=== PATIENT | male | born 1945 | race Caucasian/White ===

== ENCOUNTER 2018-03-15 10:28 | Inpatient (IN) | payer MEDICARE, OTHER ==
[2018-03-15] MEDS ORDERED: Ketorolac Tromethamine 30 MG/ML VIAL ONE (11:35)
[2018-03-15 11:46] LABS: #Basophils 0.1 thou/uL (0.0-0.2); #Eosinphils 0.1 thou/uL (0.0-0.7); #Lymphocytes 2.6 thou/uL (1.20-3.40); #Monocytes 1.2 thou/uL (0.11-0.59); #Neutrophils 13.8 thou/uL (1.40-6.50); %Basophils 0.4 % (0.0-1.0); %Eosinophils 0.3 % (0.0-10.0); %Lymphocytes 14.4 % (21.0-51.0); %Monocytes 6.9 % (0.0-10.0); Hemoglobin 15.7 g/dL (14.0-18.0); Mean Corpuscular HGB CONC 34.6 g/dL (32.0-36.0); Mean Corpuscular Hemoglobin 30.2 pg (27.0-31.0); Mean Corpuscular Volume 87.2 fL (78.0-98.0); Mean Platelet Volume 7.8 fL (7.4-10.4); Platelet Count 249 thou/uL (130-400); RBC Distribution Width 12.5 % (11.5-14.5); Red Blood Cell (RBC) Count 5.21 mill/uL (4.70-6.10); White Blood Cell (WBC) Count 17.8 thou/uL (4.8-10.8)
[2018-03-15 12:10] LABS: ALT (SGPT) 43 U/L (8-55); AST (SGOT) 34 U/L (5-34); Albumin 4.4 g/dL (3.4-4.8); Alkaline Phosphatase 72 U/L (40-150); Anion Gap 15 mmol/L (10-20); BUN (Urea Nitrogen) 19 mg/dL (8.4-25.7); Calc. Creatinine Clearance 0 mL/min (70-130); Calcium 10.5 mg/dL (7.8-10.44); Carbon Dioxide 21 mmol/L (23-31); Chloride 102 mmol/L (98-107); Estimated GFR-MDRD 44; Globulin 3.4 g/dL (2.4-3.5); Glucose 111 mg/dL (83-110); Lipase 22 U/L (8-78); Potassium 3.2 mmol/L (3.5-5.1); Protein, Total 7.8 g/dL (5.8-8.1); Sodium 135 mmol/L (136-145)
--- NOTE | 2018-03-15 13:28 | CT ---
CT OF THE ABDOMEN AND PELVIS WITH CONTRAST: 03/15/18 COMPARISON: None. HISTORY: Abdominal pain that began this morning. TECHNIQUE: Multiple contiguous axial images were obtained in a CT of the abdomen and pelvis with contrast. Coron al reformats were performed. FINDINGS: There are hypodensities in the bilateral kidneys measuring up to 5.5 cm in size which represents cys ts. The liver, gallbladder, adrenal glands, spleen, and pancreas are unremarkable. There is a calcification within the tip of the appendix. Just distal to the calcification, the append ix is mildly enlarged and contains hyperdense material. There is subtle surrounding stranding changes and the appendix measures 11 mm in size in this location. No free air or free fluid are seen in the abdomen or pelvis. The small bowel is unremarkable. Scattered diverticula are seen in the colon. No abdominal or pelvic lymphadenopathy are seen. Atherosclerotic calcifications are seen in the aorta . Degenerative changes are seen in the spine. The visualized inferior thorax and abdominal wall soft tissues are unremarkable. IMPRESSION: 1. Possible tip appendicitis. 2. Bilateral renal cysts. 3. Diverticulosis. POS: ASHUTOSH
[2018-03-15] MEDS ORDERED: Piperacillin/Tazobactam 3.375 GM VIAL ONE (14:03)
[2018-03-15 14:17] LABS: Bilirubin Negative (Negative); Blood, Urine Negative (Negative); Clarity CLEAR (Clear); Glucose, Urine (Dipstick) Negative (Negative); Leukocyte Trace (Negative); Nitrite Negative (Negative); Protein, Urine (Dipstick) Negative (Neg-Trace); Specific Gravity, Urine 1.026 (1.002-1.036); pH, Urine 7.5 (5.0-9.0)
[2018-03-15 14:19] LABS: Bacteria/HPF None Seen HPF (None Seen); Hyaline Casts/LPF 0-3 HYALINE CAST LPF (0-3 Hyaline); RBC/HPF 0-3 HPF (0-3); Squamous Epithelial None Seen HPF (0-3); WBC/HPF None Seen HPF (0-3)
[2018-03-15] MEDS ORDERED: Potassium Chloride 20 MEQ in Premix Bag 1 BAG IVPB SCH (14:30)
[2018-03-15] MEDS ORDERED: Fentanyl 100 MCG/2 ML VIAL ONE ×3 (14:50→17:07)
[2018-03-15] MEDS ORDERED: Lidocaine 2% Jelly 5 ML TUBE ONE (14:50)
[2018-03-15] MEDS ORDERED: Bupivacaine/Epinephrine 0.25% 30 ML VIAL ONE (14:51)
[2018-03-15] MEDS ORDERED: Ondansetron HCl/PF 4 MG/2 ML Vial IVP PRN (16:05)
[2018-03-15] MEDS ORDERED: Promethazine HCl 25 MG/ML VIAL IM PRN (16:05)
[2018-03-15] MEDS ORDERED: Promethazine HCl 25 MG/ML VIAL SLOW IVP PRN ×2 (16:05→16:56)
[2018-03-15] MEDS ORDERED: Promethazine HCl 12.5 MG SUPP PR PRN (16:56)
[2018-03-15] MEDS ORDERED: Promethazine 25 MG TAB PO PRN (16:56)
[2018-03-15] MEDS ORDERED: Ondansetron PF 4 MG/2 ML Vial IVP PRN (16:57)
[2018-03-15] MEDS ORDERED: Morphine 2 MG/ML SYRINGE SLOW IVP PRN (16:57)
[2018-03-15] MEDS ORDERED: Acetaminophen 325 MG TAB PO PRN ×2 (16:58)
[2018-03-15] MEDS ORDERED: HYDROcodone/Acetaminophen 5/325 mg Tablet PO PRN ×2 (16:59)
[2018-03-15 18:04] LABS: Troponin I Less than 0.010 ng/mL (< 0.028)
[2018-03-15] MEDS: Sodium Chloride 0.9% 1,000 ML IV SCH (18:35)
[2018-03-15 19:38] VITALS: BMI 29.9
[2018-03-15] MEDS ORDERED: PHENYLEPHRINE-NS 100 MCG/ML 10 ML SYRINGE ONE (20:20)
[2018-03-15] MEDS ORDERED: Dexamethasone 20 MG/5 ML VIAL ONE (20:20)
[2018-03-15] MEDS ORDERED: Succinylcholine Chloride 20 MG/ML 10 ml SYRINGE FS ONE (20:20)
[2018-03-15] MEDS ORDERED: Glycopyrrolate 0.2 MG/ML 5 ML SYRINGE ONE (20:20)
[2018-03-15] MEDS ORDERED: Lidocaine 1% PF 5 ML VIAL ONE (20:20)
[2018-03-15] MEDS ORDERED: Ondansetron PF 4 MG/2 ML Vial ONE (20:20)
[2018-03-15] MEDS ORDERED: PROPOFOL 200 MG/20 ML VIAL ONE (20:20)
[2018-03-15] MEDS: Piperacillin/Tazobactam 3.375 GM in Sodium Chloride 0.9% 100 ML IVPB SCH (22:07)
--- NOTE | 2018-03-15 23:29 | HP ---
CHIEF COMPLAINT: Abdominal pain. HISTORY OF PRESENT ILLNESS: Mr. 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 He was on his way from [place] to [place] when he developed some discomfort in his lower abdomen around 2:00 this morning. He had a bowel movement, which did not relieve his pain and continued to feel like he needed to have another bowel movement. He describes the pain as being like gassy. It got worse that he continued to drive toward [place], to the point that he had to lift himself up off seat whenever he had a bump in the road. 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 He denies any fever, chills, nausea, or vomiting and states that his last bowel movement was normal. PAST MEDICAL HISTORY: Coronary artery disease, status post stenting x2 in 2001. 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 He also has hypertension and hyperlipidemia which are controlled on medications. PAST SURGICAL HISTORY: 1. Back surgery. 2. Cataract. ALLERGIES: NO KNOWN DRUG ALLERGIES. MEDICATIONS: Included: 1. Aspirin. 2. Lisinopril/hydrochlorothiazide. 3. Simvastatin. FAMILY HISTORY: Noncontributory. REVIEW OF SYSTEMS: Negative except per HPI. PHYSICAL EXAMINATION: VITAL SIGNS: Stable. HEENT: Unremarkable. NECK: Supple without lymphadenopathy or thyroid nodules. HEART: Regular in its rate and rhythm without murmurs, rubs, or gallops. LUNGS: Clear to auscultation bilaterally. ABDOMEN: Soft and nondistended. He is very tender to palpation in the right lower quadrant greater than left lower quadrant with no palpable masses or hernias. EXTREMITIES: Warm and well-perfused without edema. NEUROLOGIC: No focal deficits. PSYCHIATRIC: Alert, oriented, and appropriate. LABORATORY DATA: White count is elevated at 17,000. Other labs are unremarkable. CT images are reviewed and I agreed with the written report. He had an appendicolith and a tip appendicitis. ASSESSMENT: Appendicitis. RECOMMENDATIONS: Laparoscopic appendectomy. The patient's diagnosis and recommended treatment were discussed with him. The inherent risks with surgery were also discussed. These include, but are not limited to, bleeding, infection, risks of anesthesia, damage to nearby structures including bowel, bladder and blood vessels, need for open surgery, and need for other procedures. He understands and accepts these risks and wishes to proceed. He received antibiotics in the Emergency Room and these will be continued perioperatively. His [place]. He does not have anybody in town to come pick him up, so he will likely stay overnight. Job ID: [id number]
[2018-03-16] MEDS: Sodium Chloride 0.9% 1,000 ML IV SCH ×2 (02:58→12:05)
[2018-03-16] MEDS: Piperacillin/Tazobactam 3.375 GM in Sodium Chloride 0.9% 100 ML IVPB SCH ×2 (02:58→09:29)
[2018-03-16 06:10] LABS: #Lymphocytes 1.2 thou/uL (1.20-3.40); #Monocytes 0.6 thou/uL (0.11-0.59); #Neutrophils 10.2 thou/uL (1.40-6.50); %Basophils 0.2 % (0.0-1.0); %Eosinophils 0.1 % (0.0-10.0); %Lymphocytes 9.7 % (21.0-51.0); %Monocytes 4.9 % (0.0-10.0); %Neutrophils 85.1 % (42.0-75.0); Hemoglobin 14.8 g/dL (14.0-18.0); Mean Corpuscular HGB CONC 34.2 g/dL (32.0-36.0); Mean Corpuscular Hemoglobin 30.7 pg (27.0-31.0); Mean Corpuscular Volume 89.8 fL (78.0-98.0); Mean Platelet Volume 8.4 fL (7.4-10.4); Platelet Count 206 thou/uL (130-400); RBC Distribution Width 12.6 % (11.5-14.5); Red Blood Cell (RBC) Count 4.83 mill/uL (4.70-6.10); White Blood Cell (WBC) Count 11.9 thou/uL (4.8-10.8)
[2018-03-16 06:28] LABS: Anion Gap 13 mmol/L (10-20); BUN (Urea Nitrogen) 16 mg/dL (8.4-25.7); Calc. Creatinine Clearance 64 mL/min (70-130); Calcium 9.2 mg/dL (7.8-10.44); Carbon Dioxide 22 mmol/L (23-31); Chloride 107 mmol/L (98-107); Estimated GFR-MDRD 49; Glucose 139 mg/dL (83-110); Potassium 3.7 mmol/L (3.5-5.1); Sodium 138 mmol/L (136-145)
[2018-03-16 06:35] LABS: Troponin I Less than 0.010 ng/mL (< 0.028)
[2018-03-16] MEDS ORDERED: Lisinopril 20 MG TAB PO SCH (09:00)
[2018-03-16] MEDS ORDERED: Atorvastatin Calcium 20 MG TAB PO SCH (09:00)
[2018-03-16] MEDS ORDERED: Aspirin 81 mg Enteric Coated Tablet PO SCH (09:00)
[2018-03-16] MEDS ORDERED: Hydrochlorothiazide 25 MG TAB PO SCH (09:00)
[2018-03-16 15:38] VITALS: BP 158/80; TEMP 97.7
--- NOTE | 2018-03-17 01:24 | CON ---
DATE OF CONSULTATION: REASON FOR CONSULTATION: Dysrhythmia. HISTORY OF PRESENT ILLNESS: Mr. Perez is a 72-year-old gentleman, who recently presented with appendicitis. He has a previous history of CAD status post stent placement in 2007. He also recently was evaluated by Cardiology, where he underwent a noninvasive stress study. It was negative for ischemia per the patient's history. He recently underwent appendectomy without complication. He was found to have second-degree type 1 AV block. From a CV standpoint, he does not complain of chest pain, pressure, shortness of breath, lightheaded, dizziness syncope, or presyncope. PAST MEDICAL HISTORY: 1. CAD status post stent placement. 2. Cataract surgery. 3. Back surgery. 4. Recent appendectomy. ALLERGIES: NONE. MEDICATIONS: 1. Zocor. 2. Aspirin. 3. Lisinopril. REVIEW OF SYSTEMS: A 10-point review of systems is reviewed and as noted above, otherwise negative. PHYSICAL EXAMINATION: GENERAL: Patient is a pleasant male who is in no acute distress. The patient appears their stated age. VITAL SIGNS: Blood pressure 137/69, pulse 72, and temperature 98. NEUROLOGIC: The patient is alert and oriented x3 with no focal neurologic deficits. HEENT: Sclerae without icterus. Mouth has moist mucous membranes with normal pallor. NECK: No JVD. Carotid upstroke brisk. No bruits bilaterally. LUNGS: Clear to auscultation with unlabored respirations. BACK: No scoliosis or kyphosis. CARDIAC: Regular rate and rhythm with normal S1 and S2. No S3 or S4 noted. No significant rubs, murmurs, thrills, or gallops noted throughout the precordium. PMI is not displaced. There is no parasternal heave. ABDOMEN: Soft, nontender, nondistended. No peritoneal signs present. No hepatosplenomegaly. No abnormal striae. EXTREMITIES: 2+ femoral and 2+ dorsalis pedis pulses. No cyanosis, clubbing, or edema. SKIN: No gross abnormalities. PERTINENT LABORATORY DATA: Hemoglobin 14.8. Creatinine 1.42, which is down from 1.56. EKG shows normal sinus rhythm with second-degree type 1 AV block. IMPRESSION: 1. Dysrhythmia. 2. Coronary artery disease. 3. Status post stent placement. RECOMMENDATIONS: From a CV standpoint, this felt to be a benign dysrhythmia. He has no current symptoms. At this point, I would not recommend any further treatment or diagnostic modalities. From my standpoint, it will be okay for discharge. Job ID: [id number]
== END 2018-03-16 19:02 | disposition home or self-care (01) | DRG 343 ==
LOC: ERS 10:28 → SDC 14:09 → 2NO 18:33
PROVIDERS: ADMIT Surgery; ATTEND Surgery
PROC: 0DTJ4ZZ Resection of Appendix, Percutaneous Endoscopic Approach (ICD-10-PCS; principal; 2018-03-15)
DX: K35.80 Unspecified acute appendicitis (principal); I25.10 Atherosclerotic heart disease of native coronary artery without angina pectoris; I10 Essential (primary) hypertension; E78.5 Hyperlipidemia, unspecified; I49.9 Cardiac arrhythmia, unspecified; Z98.61 Coronary angioplasty status; Z98.49 Cataract extraction status, unspecified eye; Z98.890 Other specified postprocedural states; Z79.82 Long term (current) use of aspirin
CPT/HCPCS: 36415; 74177; 80048; 80053; 81003; 81015; 83605; 83690; 84484; 85025; 87040; 88304; 93005; 93010; 96361; 96374; 96375; J1100; J1885; J2001; J2405; J2543; J2704; J3010; J3480; J7050